=== PATIENT | male | born 1965 | race Caucasian/White ===

== ENCOUNTER 2017-01-13 20:06 | Emergency (ER) | payer BC ==
--- NOTE | 2017-01-13 21:36 | XR ---
EXAMINATION TYPE: XR hand complete LT DATE OF EXAM: 01/13/2017 9:29 PM CLINICAL HISTORY: Left hand pain after laceration injury today. TECHNIQUE: Frontal, lateral and oblique images of the left hand are obtained. COMPARISON: None. FINDINGS: Overlying gauze or bandage material is seen at level of first distal phalanx making evaluat ion at this level slightly suboptimal. There is acute comminuted minimally displaced fracture involvi ng the first distal phalanx. 2 linear densities or soft tissue foreign body identified measuring roug hly 2 mm in length. Remainder of left hand is preserved. Joint spaces are maintained. IMPRESSION: There is acute comminuted minimally displaced fracture involving distal two thirds of th e first distal phalanx, Two 2mm linear soft tissue foreign bodies are identified. (Initial encounter close type post traumatic fracture)
[2017-01-13] MEDS ORDERED: ceFAZolin 1,000 MG VIAL IM STA (21:37)
[2017-01-13] MEDS ORDERED: HYDROmorphone 1 MG/ML 1 ML SYRINGE IM STA (21:37)
--- NOTE | 2017-01-13 22:06 | ED ---
Wound/Laceration HPI - General Chief Complaint: Wound/Laceration Stated Complaint: Thumb Laceration Time Seen by Provider: 01/13/17 21:07 Source: patient, RN notes reviewed Mode of arrival: ambulatory Limitations: no limitations - History of Present Illness Initial Comments: Patient is a 51-year-old male presents emergency room for evaluation of left thumb laceration. Patient states he was cutting plexiglass with a table saw and the plexi glass exploded and he accidentally cut his left thumb. Patient states having 10 out of 10 left thumb pain. Patient states he is experiencing tingling at the tip of his thumb. Patient denies any other injuries during incident. Patient states last tetanus vaccine was this year. Patient denies taking blood thinners. - Related Data Home Medications Medication Instructions Recorded Confirmed Candesartan [Atacand] 16 mg PO DAILY 03/11/16 11/10/16 Previous Rx's Medication Instructions Recorded Cephalexin [Keflex] 500 mg PO Q6HR 7 Days 01/13/17 HYDROcodone/APAP 5-325MG [[place] 1 tab PO Q6HR PRN #20 tab 01/13/17 5-325] Allergies Allergy/AdvReac Type Severity Reaction Status Date / Time seasonal Allergy Unknown Uncoded 01/13/17 20:40 Review of Systems ROS Statement: Those systems with pertinent positive or pertinent negative responses have been documented in the HPI. ROS Other: All systems not noted in ROS Statement are negative. Past Medical History Additional Past Medical History / Comment(s): Migraines History of Any Multi-Drug Resistant Organisms: None Reported Past Surgical History: Orthopedic Surgery Additional Past Surgical History / Comment(s): Surgery on both hands. Right to fix wrist and left to fix tendons Past Anesthesia/Blood Transfusion Reactions: No Reported Reaction Past Psychological History: No Psychological Hx Reported Smoking Status: Never smoker Past Alcohol Use History: None Reported Past Drug Use History: None Reported - Past Family History Mother Family Medical History: Hypertension Additional Family Medical History / Comment(s): Chrones disease Father Family Medical History: Hypertension General Exam - General Exam Comments Initial Comments: Sitting in exam room in no acute distress. Limitations: no limitations General appearance: alert, in no apparent distress Head exam: Present: atraumatic, normocephalic, normal inspection Eye exam: Present: normal appearance ENT exam: Present: normal exam Neck exam: Present: normal inspection Respiratory exam: Present: normal lung sounds bilaterally. Absent: respiratory distress Cardiovascular Exam: Present: regular rate, normal rhythm, normal heart sounds Left Hand Wrist exam: Present: full ROM, tenderness (Pain on palpating over the distal phalanx of the thumb), laceration (Vertical 2cm laceration of the distal phalanx of the thumb on the palmar side. ), nail avulsion (left thumb) Neuro motor exam: Present: wrist extension intact Vascular: Present: radial pulse (2+), ulnar pulse (2+) Back exam: Present: normal inspection Neurological exam: Present: alert, oriented X3, CN II-XII intact, normal gait Psychiatric exam: Present: normal affect, normal mood Skin exam: Present: warm, dry, normal color. Absent: rash Course Vital Signs 01/13/17 01/13/17 01/13/17 20:26 22:22 23:51 Temperature 97.8 F 99 F Pulse Rate 70 65 70 Respiratory 18 18 16 Rate Blood Pressure 108/64 112/69 107/68 O2 Sat by Pulse 97 98 98 Oximetry 01/14/17 00:01 Temperature Pulse Rate 78 Respiratory 16 Rate Blood Pressure 106/56 O2 Sat by Pulse 98 Oximetry Procedures - Laceration Laceration #1 Consent Obtained: verbal consent Indication: laceration Site: other (left thumb) Size (cm): 2 Description: linear Anesthetic Used: lidocaine 1% Anesthesia Technique: nerve block Amount (mls): 8 Pre-repair: wound explored, irrigated extensively Type of Sutures: nylon Size of Sutures: 4-0 (4), 5-0 (7) Number of Sutures: 11 Technique: simple, interrupted Patient Tolerated Procedure: well Medical Decision Making - Medical Decision Making Patient is a 51-year-old male presents to the emergency room for evaluation of left thumb pain and laceration. Left hand x-ray shows a shattered distal phalanx of the left thumb. Patient also has thumb laceration. Patient has an open fracture. Patient given IM Ancef. Left thumb was digitally blocked. Laceration was irrigated extensively with 1 L of normal saline. Laceration repaired with sutures. Nail was fully removed from nailbed and then placed back on over the nail bed and tacked on with sutures. Patient became lightheaded and hypotensive during procedure. After procedure was finished blood pressure has gone up and patient is feeling a lot better. Will send patient home with pain medications and antibiotics. Advised patient to follow- up with hand specialist. Patient states he understands everything that was discussed with him. Return parameters discussed. Case discussed with Dr. Cardenas. - Radiology Data Radiology results: report reviewed, image reviewed Disposition Clinical Impression: Fracture of thumb, left, open Disposition: HOME SELF-CARE Condition: Good Instructions: Finger Fracture (ED), Finger Laceration (ED), Care For Your Stitches (ED) Additional Instructions: Please follow up with hand specialist for further evaluation. Take ibuprofen as needed for pain. Take Cyclone as needed for severe pain. Take antibiotics as directed. Can change dressing in 24-48 hours. Clean suture area with a damp cloth. Please return for suture removal in 12-14 days. If any new symptom arises or symptoms worsen, return to ER as soon as possible. Prescriptions: Cephalexin [Keflex] 500 mg PO Q6HR 7 Days HYDROcodone/APAP 5-325MG [[place] 5-325] 1 tab PO Q6HR PRN #20 tab PRN Reason: Pain Referrals: Anderson Marin MD [Primary Care Provider] - 1-2 days Ihsan Ferrera DO [Doctor of Osteopathic Medicine] - 1-2 days Time of Disposition: 23:44
[2017-01-13 23:53] VITALS: RESP 16; TEMP 99
[2017-01-14 00:01] VITALS: BP 106/56; PULSE 78
== END 2017-01-14 00:01 | disposition home or self-care (01) ==
LOC: EC 20:06
DX: S62.522B Displaced fracture of distal phalanx of left thumb, initial encounter for open fracture (principal); W25.XXXA Contact with sharp glass, initial encounter
CPT/HCPCS: 99282; 96372 ×2; 12001; 64450; 73130; J0690; J1170

== ENCOUNTER → 2018-12-23 | Outpatient (CLI) | payer BC ==
--- NOTE | 2018-12-23 08:15 | CT ---
EXAMINATION TYPE: CT brain wo con DATE OF EXAM: 12/23/2018 COMPARISON: None HISTORY: History of migraine headaches. Recent vision changes during migraine episodes, CT DLP: 1066.[address] of the brain was performed. The ventricles, basal cisterns and sulci overlying the cerebral convexities demonstrate mild enlargem ent. There is no evidence for intracranial hemorrhage or sulcal effacement. There is decreased attenuation about the periventricular white matter and deep white matter of both c erebral hemispheres, compatible with chronic small vessel ischemia. Differential diagnosis does inclu de demyelination. No mass effects are seen.No midline shift. Osseous calvarium is intact. If symptoms persist consider MRI. IMPRESSION: 1. Age related atrophic and chronic small vessel ischemic change without acute intracranial process s een at this time.
== END ==
LOC: RADCTMAIN 07:51
PROVIDERS: ATTEND Physician Assistant
DX: G31.1 Senile degeneration of brain, not elsewhere classified (principal); I67.82 Cerebral ischemia
CPT/HCPCS: 70450

== ENCOUNTER 2021-04-19 19:46 | Emergency (ER) | payer BC ==
[2021-04-19 20:00] VITALS: PULSE 91; RESP 18; TEMP 98
--- NOTE | 2021-04-19 20:34 | XR ---
EXAMINATION TYPE: XR knee complete LT DATE OF EXAM: 04/19/2021 COMPARISON: NONE HISTORY: Knee pain TECHNIQUE: 3 views FINDINGS: I see no fracture nor dislocation. Joint spaces are fairly normal. There is mild spurring o n the anterior patella. There is spurring at the tibial tubercle. There are no erosions. There is no subluxation. There is no sign of joint effusion. IMPRESSION: Mild spurring. No fracture seen.
--- NOTE | 2021-04-19 20:39 | ED ---
General Adult HPI - General Chief complaint: Extremity Injury, Lower Stated complaint: L knee pain Time Seen by Provider: 04/19/21 20:07 Source: patient, family, RN notes reviewed, old records reviewed Mode of arrival: ambulatory Limitations: no limitations - History of Present Illness Initial comments: 55-year-old male presenting with left knee pain. Patient was getting out of his truck, and twisted his left knee. There is no head or neck trauma. He states that his leg went inward and his knee went outward. He's had issues with this knee in the past. He's had significant pain since the time of injury. - Related Data Home Medications Medication Instructions Recorded Confirmed Candesartan [Atacand] 16 mg PO DAILY 03/11/16 11/10/16 Previous Rx's Medication Instructions Recorded Cephalexin [Keflex] 500 mg PO Q6HR 7 Days cap 01/13/17 HYDROcodone/APAP 5-325MG [[place] 1 tab PO Q6HR PRN #20 tab 01/13/17 5-325] HYDROcodone/APAP 5-325MG [[place] 1 tab PO Q6HR PRN #12 tab 04/19/21 5-325] Ibuprofen [Motrin] 600 mg PO Q8HR PRN #24 tab 04/19/21 Allergies Allergy/AdvReac Type Severity Reaction Status Date / Time seasonal Allergy Unknown Uncoded 04/19/21 20:00 Review of Systems ROS Statement: Those systems with pertinent positive or pertinent negative responses have been documented in the HPI. ROS Other: All systems not noted in ROS Statement are negative. Past Medical History Past Medical History: Hypertension Additional Past Medical History / Comment(s): Migraines History of Any Multi-Drug Resistant Organisms: None Reported Past Surgical History: Orthopedic Surgery Additional Past Surgical History / Comment(s): Surgery on both hands. Right to fix wrist and left to fix tendons Past Anesthesia/Blood Transfusion Reactions: No Reported Reaction Past Psychological History: No Psychological Hx Reported Smoking Status: Never smoker Past Alcohol Use History: Occasional Past Drug Use History: None Reported - Past Family History Mother Family Medical History: Hypertension Additional Family Medical History / Comment(s): Chrones disease Father Family Medical History: Hypertension General Exam Limitations: no limitations General appearance: alert, in no apparent distress Head exam: Present: atraumatic, normocephalic Eye exam: Present: normal appearance, PERRL ENT exam: Present: normal exam Neck exam: Present: normal inspection. Absent: tenderness, meningismus Respiratory exam: Present: normal lung sounds bilaterally. Absent: respiratory distress, wheezes Cardiovascular Exam: Present: regular rate, normal rhythm GI/Abdominal exam: Present: soft. Absent: distended, tenderness, guarding Extremities exam: Present: joint swelling (Left knee, mild effusion on exam, tenderness on the medial aspect of the joint. No erythema. Distal pulses are intact.) Course Vital Signs 04/19/21 19:55 Temperature 98.0 F Pulse Rate 91 Respiratory 18 Rate O2 Sat by Pulse 97 Oximetry Medical Decision Making - Medical Decision Making 55-year-old male with injury is concerning for ligamentous injury. X-ray negative for acute fracture dislocation. Distal pulses intact. Patient is placed in a knee immobilizer and given orthopedic follow-up. Disposition Clinical Impression: Knee sprain Disposition: HOME SELF-CARE Condition: Good Instructions (If sedation given, give patient instructions): Knee Sprain (ED) Prescriptions: Ibuprofen [Motrin] 600 mg PO Q8HR PRN #24 tab PRN Reason: Pain HYDROcodone/APAP 5-325MG [[place] 5-325] 1 tab PO Q6HR PRN #12 tab PRN Reason: Pain Is patient prescribed a controlled substance at d/c from ED?: No Referrals: Anderson Marin MD [Primary Care Provider] - 1-2 days Samson Keita DO [Doctor of Osteopathic Medicine] - 1-2 days Time of Disposition: 20:39
== END 2021-04-19 20:45 | disposition home or self-care (01) ==
LOC: EC 19:46
DX: S83.92XA Sprain of unspecified site of left knee, initial encounter (principal); X50.1XXA Overexertion from prolonged static or awkward postures, initial encounter; Y93.89 Activity, other specified; Y92.812 Truck as the place of occurrence of the external cause; I10 Essential (primary) hypertension
CPT/HCPCS: 73562; 99283; L1830

== ENCOUNTER → 2021-10-03 | Outpatient (CLI) | payer BC ==
[~2021-10-03] MED LIST: BAMLANIVIMAB (EUA) 700 MG, ETESEVIMAB (EUA) 1,400 MG in SODIUM CHLORIDE 0.9% 50 ML IVPB NR; SODIUM CHLORIDE 0.9% 50 ML IVPB NR; SODIUM CHLORIDE 0.9% 500 ML 500 ML in EMPTY BAG 1 BAG IV PRN
[2021-10-03 14:12] VITALS: RESP 16
[2021-10-03 14:53] VITALS: TEMP 97.9
[2021-10-03 15:07] VITALS: BP 128/78; PULSE 55
== END | disposition home or self-care (01) ==
LOC: PROCWHC3 13:25
PROVIDERS: ATTEND Family Medicine
DX: U07.1 COVID-19 (principal)
CPT/HCPCS: 96360; J3490; M0243

== ENCOUNTER 2021-10-09 17:20 | Emergency (ER) | payer BC ==
[2021-10-09 18:38] VITALS: TEMP 97.3
[2021-10-09] MEDS ORDERED: SODIUM CHLORIDE 0.9% 1,000 ML IV STA (20:39)
[2021-10-09] MEDS ORDERED: KETOROLAC 15 MG/ML 1 ML VIAL IVP STA (20:39)
[2021-10-09] MEDS ORDERED: diphenhydrAMINE 50 MG/ML 1 ML VIAL IVP STA (20:40)
[2021-10-09] MEDS ORDERED: ONDANSETRON 4 MG/2 ML VIAL IVP STA (20:40)
--- NOTE | 2021-10-09 20:52 | XR ---
EXAMINATION TYPE: XR chest 2V DATE OF EXAM: 10/09/2021 COMPARISON: 03/11/2016 HISTORY: Chest pain TECHNIQUE: FINDINGS: Heart and mediastinum are normal. Lungs are clear of infiltrate. There is no heart failure. There are no hilar masses. Costophrenic angles are clear. Bony thorax is intact. IMPRESSION: Normal chest. No adverse change.
[2021-10-09 21:44] LABS: Basophils % (A) 0 %; Eosinophils # (A) 0.1 k/uL (0-0.7); Eosinophils % (A) 1 %; HCT 46.3 % (39.0-53.0); HGB 15.1 gm/dL (13.0-17.5); Lymphocytes # (A) 3.2 k/uL (1.0-4.8); Lymphocytes % (A) 26 %; MCH 29.1 pg (25.0-35.0); MCHC 32.7 g/dL (31.0-37.0); Mean Platelet Volume 9.2; Monocytes % (A) 8 %; Neutrophils # (A) 7.6 k/uL (1.3-7.7); Neutrophils % (A) 63 %; Platelet Count 261 k/uL (150-450); RBC 5.21 m/uL (4.30-5.90); RDW 13.9 % (11.5-15.5); WBC 12.2 k/uL (3.8-10.6)
[2021-10-09 22:06] LABS: Potassium 4.1 mmol/L (3.5-5.1)
[2021-10-09 22:09] LABS: Albumin 3.8 g/dL (3.5-5.0); Total Bilirubin 0.5 mg/dL (0.2-1.3); Total Protein 6.6 g/dL (6.3-8.2)
--- NOTE | 2021-10-09 22:31 | ED ---
Recheck HPI - General Chief Complaint: Recheck/Abnormal Lab/Rx Stated Complaint: Low Blood Pressure Time Seen by Provider: 10/09/21 20:02 Source: patient, RN notes reviewed Mode of arrival: ambulatory Limitations: no limitations - History of Present Illness Initial Comments: Patient is a 55-year-old male with history of hypertension, presenting to the e mergency department today for concerns of low blood pressure. Patient states he felt lightheaded and dizzy today after he admits to that. States he called his doctor's office and they recommended taking his blood pressure at home. He states his readings were 90s over 60s and they recommend coming in for evaluation. Patient states he has been recovering from Covid, he was diagnosed 10 days ago. He states overall he has been feeling much improved, he is back to eating and drinking as normal. He denies any chest pain or shortness of breath, no nausea or vomiting. He denies any lightheadedness or dizziness at this time. Patient denies any fevers or chills. He has no further complaints. Patient's vital signs are stable upon arrival with blood pressure 130/81. - Related Data Home Medications Medication Instructions Recorded Confirmed Candesartan [Atacand] 16 mg PO DAILY 03/11/16 10/03/21 Previous Rx's Medication Instructions Recorded Cephalexin [Keflex] 500 mg PO Q6HR 7 Days cap 01/13/17 HYDROcodone/APAP 5-325MG [[place] 1 tab PO Q6HR PRN #20 tab 01/13/17 5-325] HYDROcodone/APAP 5-325MG [[place] 1 tab PO Q6HR PRN #12 tab 04/19/21 5-325] Ibuprofen [Motrin] 600 mg PO Q8HR PRN #24 tab 04/19/21 Allergies Allergy/AdvReac Type Severity Reaction Status Date / Time seasonal Allergy Unknown Uncoded 10/09/21 18:36 Review of Systems ROS Statement: Those systems with pertinent positive or pertinent negative responses have been documented in the HPI. ROS Other: All systems not noted in ROS Statement are negative. Past Medical History Past Medical History: Hypertension Additional Past Medical History / Comment(s): Migraines History of Any Multi-Drug Resistant Organisms: None Reported Past Surgical History: Orthopedic Surgery Additional Past Surgical History / Comment(s): Surgery on both hands. Right to fix wrist and left to fix tendons Past Anesthesia/Blood Transfusion Reactions: No Reported Reaction Past Psychological History: No Psychological Hx Reported Smoking Status: Never smoker Past Alcohol Use History: Occasional Past Drug Use History: None Reported - Past Family History Mother Family Medical History: Hypertension Additional Family Medical History / Comment(s): Chrones disease Father Family Medical History: Hypertension General Exam - General Exam Comments Initial Comments: GENERAL: Patient is well-developed and well-nourished. Patient is nontoxic and in no acute distress. HEAD: Atraumatic, normocephalic. EYES: Pupils equal round and reactive to light, extraocular movements intact, sclera anicteric, conjunctiva are normal. Eyelids were unremarkable. ENT: Moist mucous membranes. NECK: Normal range of motion, supple without lymphadenopathy or JVD. LUNGS: Unlabored respirations. Breath sounds clear to auscultation bilaterally and equal. No wheezes rales or rhonchi. HEART: Regular rate and rhythm without murmurs, rubs or gallops. ABDOMEN: Soft, nontender, normoactive bowel sounds. No guarding, no rebound. No masses appreciated. MUSCULOSKELETAL: Normal extremities with adequate strength and normal range of motion, no pitting or edema. No clubbing or cyanosis. NEUROLOGICAL: Patient is alert and oriented x 3. SKIN: Warm, Dry, normal turgor, no rashes or lesions noted. Limitations: no limitations Course Vital Signs 10/09/21 10/09/21 18:36 23:00 Temperature 97.3 F L Pulse Rate 82 75 Respiratory 20 17 Rate Blood Pressure 138/81 132/79 O2 Sat by Pulse 99 99 Oximetry Medical Decision Making - Medical Decision Making Patient is a 55-year-old male here for a recheck and concerns for low blood pressure readings at home. He was lightheaded today. Recovering from covid, dx 10 days ago. His vital signs are stable upon arrival with blood pressure 130s over 80s. His exam is unremarkable. Basic labs are normal, chest x-ray is also unremarkable. She was having a headache today, to give her some fluids and Toradol. He reports improvement in his symptoms. Blood pressure rechecked and continues to be normal. I recommended following up with his primary care. He is agreeable to this plan of care he is stable for discharge. - Lab Data Result diagrams: 10/09/21 21:33 10/09/21 21:33 Lab Results 10/09/21 10/09/21 Range/Units 21:33 21:33 WBC 12.2 H (3.8-10.6) k/uL RBC 5.21 (4.30-5.90) m/uL Hgb 15.1 (13.0-17.5) gm/dL Hct 46.3 (39.0-53.0) % MCV 89.0 (80.0-100.0) fL MCH 29.1 (25.0-35.0) pg MCHC 32.7 (31.0-37.0) g/dL RDW 13.9 (11.5-15.5) % Plt Count 261 (150-450) k/uL MPV 9.2 Neutrophils % 63 % Lymphocytes % 26 % Monocytes % 8 % Eosinophils % 1 % Basophils % 0 % Neutrophils # 7.6 (1.3-7.7) k/uL Lymphocytes # 3.2 (1.0-4.8) k/uL Monocytes # 1.0 (0-1.0) k/uL Eosinophils # 0.1 (0-0.7) k/uL Basophils # 0.0 (0-0.2) k/uL Sodium 135 L (137-145) mmol/L Potassium 4.1 (3.5-5.1) mmol/L Chloride 103 (98-107) mmol/L Carbon Dioxide 24 (22-30) mmol/L Anion Gap 8 mmol/L BUN 25 H (9-20) mg/dL Creatinine 1.10 (0.66-1.25) mg/dL Est GFR (CKD-EPI)AfAm 87 (>60 ml/min/1.73 sqM) Est GFR (CKD-EPI)NonAf 75 (>60 ml/min/1.73 sqM) Glucose 84 (74-99) mg/dL Calcium 9.0 (8.4-10.2) mg/dL Total Bilirubin 0.5 (0.2-1.3) mg/dL AST 24 (17-59) U/L ALT 25 (4-49) U/L Alkaline Phosphatase 52 (38-126) U/L Total Protein 6.6 (6.3-8.2) g/dL Albumin 3.8 (3.5-5.0) g/dL Disposition Clinical Impression: Hypotension, Lightheaded, Headache Disposition: HOME SELF-CARE Condition: Stable Instructions (If sedation given, give patient instructions): Acute Headache (ED) Additional Instructions: Please return to the Emergency Department if symptoms worsen or any other co ncerns. Increase your fluid intake. Please follow-up with your primary care physician. Is patient prescribed a controlled substance at d/c from ED?: No Referrals: Anderson Marin MD [Primary Care Provider] - 1-2 days Time of Disposition: 22:31
[2021-10-09 23:02] VITALS: BP 132/79; PULSE 75; RESP 17
== END 2021-10-09 23:00 | disposition home or self-care (01) ==
LOC: EC 17:20
DX: I95.9 Hypotension, unspecified (principal); I10 Essential (primary) hypertension; G43.909 Migraine, unspecified, not intractable, without status migrainosus; Z79.899 Other long term (current) drug therapy; Z91.048 Other nonmedicinal substance allergy status
CPT/HCPCS: 36415; 80053; 85025; 71046; 99285; 96361; 96374; 96375; J1200; J2405; J1885

== ENCOUNTER → 2023-03-22 | Outpatient (CLI) | payer BC ==
--- NOTE | 2023-03-24 23:04 | CT ---
EXAMINATION TYPE: CT chest wo con DATE OF EXAM: 03/22/2023 COMPARISON: 03/11/2016 HISTORY: 57-year-old male R91.8 pneumonia x 5 weeks TECHNIQUE: Contiguous axial scanning of the chest without IV contrast. Coronal and sagittal reconstru ctions performed. CT DLP: 1011.0 mGycm Automated exposure control for dose reduction was used. FINDINGS: Heart normal size without pericardial effusion. Ectatic ascending aorta 3.8 cm. Conventional arch vessel branching anatomy. No thoracic lymphadenopathy by CT size criteria. Lungs show some strandy atelectasis at the lung bases. No consolidation or pleural effusion. A centrally located hyperdensity within the upper right kidney is larger at 2.7 cm versus 2.1 cm back in 2016. A slowly enlarging cyst is suggested. Bones: Right lateral endplate spondylosis lower thoracic spine. IMPRESSION: NO ACUTE PULMONARY PROCESS. SOME STRANDY ATELECTASIS AT THE LUNG BASES.
== END | disposition home or self-care (01) ==
LOC: RADCTMAIN 15:29
PROVIDERS: ATTEND Family Medicine
DX: J98.11 Atelectasis (principal); R91.8 Other nonspecific abnormal finding of lung field
CPT/HCPCS: 71250

== ENCOUNTER 2024-02-23 15:57 | Emergency (ER) | payer BC ==
[2024-02-23 16:35] VITALS: TEMP 98.6
--- NOTE | 2024-02-23 17:13 | ED ---
General Adult HPI - General Chief complaint: Headache Stated complaint: Migraine Time Seen by Provider: 02/23/24 16:06 Source: patient Mode of arrival: ambulatory Limitations: no limitations - History of Present Illness Initial comments: 58-year-old male with past medical history for migraines presenting to the ED with a chief complaint of migraine. Patient states with history of migraines they become intermittently worse than usual which causes him to present to the ED for treatment. States today he is having a right-sided headache which is sharp in nature with associated photophobia, phonophobia, and nausea no vomiting. States that while pain is worse than his typical migraines, still in line with his history of pain levels for migraines and not excessively worse than usual. Reports that he took rimegepant and atogepant for this however r eported no relief. Per at bedside, reports that the patient is acting his normal self and she stated, "he is not having any stroke symptoms". Patient does note he was diagnosed with influenza 4 days ago however symptoms seem to completely resolved yesterday. Denies chest pain or shortness of breath. Denies fever or chills. No other complaints at this time. - Related Data Home Medications Medication Instructions Recorded Confirmed Candesartan [Atacand] 16 mg PO DAILY 03/11/16 10/03/21 Previous Rx's Medication Instructions Recorded Cephalexin [Keflex] 500 mg PO Q6HR 7 Days cap 01/13/17 HYDROcodone/APAP 5-325MG [[place] 1 tab PO Q6HR PRN #20 tab 01/13/17 5-325] HYDROcodone/APAP 5-325MG [[place] 1 tab PO Q6HR PRN #12 tab 04/19/21 5-325] Ibuprofen [Motrin] 600 mg PO Q8HR PRN #24 tab 04/19/21 Ondansetron Odt [Zofran Odt] 4 mg PO Q8HR PRN #10 tab 02/23/24 Allergies Allergy/AdvReac Type Severity Reaction Status Date / Time seasonal Allergy Unknown Uncoded 02/23/24 16:01 Review of Systems ROS Statement: Those systems with pertinent positive or pertinent negative responses have been documented in the HPI. ROS Other: All systems not noted in ROS Statement are negative. Past Medical History Past Medical History: Hypertension Additional Past Medical History / Comment(s): Migraines History of Any Multi-Drug Resistant Organisms: None Reported Past Surgical History: Orthopedic Surgery Additional Past Surgical History / Comment(s): Surgery on both hands. Right to fix wrist and left to fix tendons Past Anesthesia/Blood Transfusion Reactions: No Reported Reaction Past Psychological History: No Psychological Hx Reported Smoking Status: Never smoker Past Alcohol Use History: Occasional Past Drug Use History: None Reported - Past Family History Mother Family Medical History: Hypertension Additional Family Medical History / Comment(s): Chrones disease Father Family Medical History: Hypertension General Exam Limitations: no limitations General appearance: alert, in no apparent distress Head exam: Present: atraumatic, normocephalic Eye exam: Present: PERRL, EOMI ENT exam: Present: mucous membranes moist Neck exam: Present: normal inspection Respiratory exam: Present: normal lung sounds bilaterally Cardiovascular Exam: Present: regular rate, normal rhythm GI/Abdominal exam: Present: soft Extremities exam: Present: other (Strength and sensation bilateral upper and lower extremities equal and intact. Radial pulses, DP/PT pulses palpable.) Neurological exam: Present: alert, oriented X3, CN II-XII intact Skin exam: Present: warm, dry Course Vital Signs 02/23/24 16:00 Temperature 98.6 F Pulse Rate 72 Respiratory 20 Rate Blood Pressure 125/79 O2 Sat by Pulse 99 Oximetry Medical Decision Making - Medical Decision Making Was pt. sent in by a medical professional or institution ([facility], [employer], urgent care, hospital, or retirement...) When possible be specific @ -No Did you speak to anyone other than the patient for history (EMS, parent, family, police, friend...)? What history was obtained from this source @ -Also spoke to the patient's for parts of history. For further details please see HPI. Did you review nursing and triage notes (agree or disagree)? Why? @ -I reviewed and agree with nursing and triage notes Were old charts reviewed (outside hosp., previous admission, EMS record, old EKG, old radiological studies, urgent care reports/EKG's, retirement records)? Report findings @ -No old charts were reviewed Differential Diagnosis (chest pain, altered mental status, abdominal pain women, abdominal pain men, vaginal bleeding, weakness, fever, dyspnea, syncope, headache, dizziness, GI bleed, back pain, seizure, CVA, palpatations, mental health, musculoskeletal)? @ -Differential Headache: Migraine, tension, cluster, carbon monoxide, central venous thrombosis, pension karma temporal arteritis, acute closure glaucoma, intercranial hemorrhage, mastoiditis, sinusitis, head injury, this is not meant to be an all-inclusive list. EKG interpreted by me (3pts min.). @ -None X-rays interpreted by me (1pt min.). @ -None done CT interpreted by me (1pt min.). @ -None done U/S interpreted by me (1pt. min.). @ -None done What testing was considered but not performed or refused? (CT, X-rays, U/S, labs)? Why? @ -None What meds were considered but not given or refused? Why? @ -None Did you discuss the management of the patient with other professionals (professionals i.e. , PA, [employer], lab, RT, psych nurse, social problems specialist, criminal lawyer, teacher, space operations officer, case consultant)? Give summary @ -No Was smoking cessation discussed for >3mins.? @ -No Was critical care preformed (if so, how long)? @ -No Were there social determinants of health that impacted care today? How? (Homelessness, low income, unemployed, alcoholism, drug addiction, transportation, low edu. Level, literacy, decrease access to med. care, mcc, rehab)? @ -No Was there de-escalation of care discussed even if they declined (Discuss DNR or withdrawal of care, Hospice)? DNR status @ -No What co-morbidities impacted this encounter? (DM, HTN, Smoking, COPD, CAD, Cancer, CVA, ARF, Chemo, Hep., AIDS, mental health diagnosis, sleep apnea, morbid obesity)? @ -None Was patient admitted / discharged? Hospital course, mention meds given and route, prescriptions, significant lab abnormalities, going to OR and other perti nent info. @ -Discharge 58-year-old male with a history of migraines presented to the ED with a chief complaint of migraine. Reports current headache today is consistent with his history of migraines however when it does get this bad presents to the ED for medications. Not worse than prior migraines. On exam cranial nerves II through XII intact. Patient's at bedside reports that she is his normal self. Initially, reported migraines was 8-9 in severity however after medications here in the ED states that it is 3 in severity. Discharged home in stable condition with instructions to follow-up with his primary care provider. Provided Zofran. Discussed strict return precautions with patient and verbalized agreement. Undiagnosed new problem with uncertain prognosis? @ -No Drug Therapy requiring intensive monitoring for toxicity (Heparin, Nitro, Ins ulin, Cardizem)? @ -No Were any procedures done? @ -No Diagnosis/symptom? @ -Headache Acute, or Chronic, or Acute on Chronic? @ -Acute on chronic Uncomplicated (without systemic symptoms) or Complicated (systemic symptoms)? @ -Uncomplicated Side effects of treatment? @ -No Exacerbation, Progression, or Severe Exacerbation? @ -No Poses a threat to life or bodily function? How? (Chest pain, [place], DC, pneumonia, PE, COPD, DKA, ARF, appy, cholecystitis, CVA, Diverticulitis, Homicidal, Suicidal, threat to staff... and all critical care pts) @ -No - Lab Data Result diagrams: 02/23/24 17:20 02/23/24 17:20 Lab Results 02/23/24 02/23/24 02/23/24 Range/Units 17:15 17:20 17:20 WBC 7.0 (3.8-10.6) k/uL RBC 5.24 (4.30-5.90) m/uL Hgb 15.0 (13.0-17.5) gm/dL Hct 46.8 (39.0-53.0) % MCV 89.3 (80.0-100.0) fL MCH 28.7 (25.0-35.0) pg MCHC 32.1 (31.0-37.0) g/dL RDW 13.8 (11.5-15.5) % Plt Count 190 (150-450) k/uL MPV 9.4 Neutrophils % 64 % Lymphocytes % 24 % Monocytes % 6 % Eosinophils % 5 % Basophils % 1 % Neutrophils # 4.5 (1.3-7.7) k/uL Lymphocytes # 1.7 (1.0-4.8) k/uL Monocytes # 0.4 (0-1.0) k/uL Eosinophils # 0.3 (0-0.7) k/uL Basophils # 0.1 (0-0.2) k/uL Sodium 140 (137-145) mmol/L Potassium 3.8 (3.5-5.1) mmol/L Chloride 106 (98-107) mmol/L Carbon Dioxide 27 (22-30) mmol/L Anion Gap 7 mmol/L BUN 17 (9-20) mg/dL Creatinine 0.79 (0.66-1.25) mg/dL Est GFR (CKD-EPI)AfAm >90 (>60 ml/min/1.73 sqM) Est GFR (CKD-EPI)NonAf >90 (>60 ml/min/1.73 sqM) Glucose 87 (74-99) mg/dL Calcium 9.2 (8.4-10.2) mg/dL Total Bilirubin 0.5 (0.2-1.3) mg/dL AST 23 (17-59) U/L ALT 20 (4-49) U/L Alkaline Phosphatase 53 (38-126) U/L Total Protein 7.0 (6.3-8.2) g/dL Albumin 4.2 (3.5-5.0) g/dL Urine Color Light Yellow Urine Appearance Clear (Clear) Urine pH 7.5 (5.0-8.0) Ur Specific [place] 1.022 (1.001-1.035) Urine Protein Negative (Negative) Urine Glucose (UA) Negative (Negative) Urine Ketones Negative (Negative) Urine Blood Negative (Negative) Urine Nitrite Negative (Negative) Urine Bilirubin Negative (Negative) Urine Urobilinogen <2.0 (<2.0) mg/dL Ur Leukocyte Esterase Negative (Negative) Disposition Clinical Impression: Headache Disposition: HOME SELF-CARE Condition: Good Additional Instructions: Please return to the Emergency Department if symptoms worsen or any other concerns. Please follow-up with your primary care provider. Prescriptions: Ondansetron Odt [Zofran Odt] 4 mg PO Q8HR PRN #10 tab PRN Reason: Nausea Is patient prescribed a controlled substance at d/c from ED?: No Referrals: Anderson Marin MD [Primary Care Provider] - 1-2 days Time of Disposition: 19:17
[2024-02-23] MEDS: MAGNESIUM SULFATE-D5W PMX 1 GM in DEXTROSE/WATER 1 100ML.BAG IVPB SCH (17:27)
[2024-02-23] MEDS: KETOROLAC 15 MG/ML 1 ML VIAL IVP STA (17:28)
[2024-02-23] MEDS: METOCLOPRAMIDE 5 MG/ML 2 ML VIAL IVP STA (17:28)
[2024-02-23] MEDS: DEXAMETHASONE SOD PHOSPHATE 10 MG/ML 1 ML VIAL IVP STA (17:28)
[2024-02-23] MEDS: ACETAMINOPHEN TAB 500 MG TAB PO STA (17:29)
[2024-02-23 17:31] LABS: Basophils # (A) 0.1 k/uL (0-0.2); Basophils % (A) 1 %; Eosinophils # (A) 0.3 k/uL (0-0.7); Eosinophils % (A) 5 %; HCT 46.8 % (39.0-53.0); Lymphocytes # (A) 1.7 k/uL (1.0-4.8); Lymphocytes % (A) 24 %; MCH 28.7 pg (25.0-35.0); MCHC 32.1 g/dL (31.0-37.0); MCV 89.3 fL (80.0-100.0); Mean Platelet Volume 9.4; Monocytes # (A) 0.4 k/uL (0-1.0); Monocytes % (A) 6 %; Neutrophils # (A) 4.5 k/uL (1.3-7.7); Neutrophils % (A) 64 %; Platelet Count 190 k/uL (150-450); RBC 5.24 m/uL (4.30-5.90); RDW 13.8 % (11.5-15.5)
[2024-02-23 17:32] LABS: Appearance,Urine Clear (Clear); Bilirubin,Urine Negative (Negative); Blood,Urine Negative (Negative); Color,Urine Light Yellow; Glucose,Urine (UA) Negative (Negative); Ketones,Urine Negative (Negative); Leukocyte Esterase,Urine Negative (Negative); Nitrite,Urine Negative (Negative); PH, Urine 7.5 (5.0-8.0); Protein,Urine Negative (Negative); Specific Gravity,Urine 1.022 (1.001-1.035); Urobilinogen,Urine <2.0 mg/dL (<2.0)
[2024-02-23 17:47] LABS: ALT 20 U/L (4-49); AST 23 U/L (17-59); African American GFR (CKD) >90 (>60 ml/min/1.73 sqM); Albumin 4.2 g/dL (3.5-5.0); Alkaline Phosphatase 53 U/L (38-126); Anion Gap 7 mmol/L; Blood Urea Nitrogen 17 mg/dL (9-20); Calcium 9.2 mg/dL (8.4-10.2); Carbon Dioxide 27 mmol/L (22-30); Chloride 106 mmol/L (98-107); Glucose 87 mg/dL (74-99); Non-African American GFR(CKD) >90 (>60 ml/min/1.73 sqM); Potassium 3.8 mmol/L (3.5-5.1); Sodium 140 mmol/L (137-145); Total Bilirubin 0.5 mg/dL (0.2-1.3)
[2024-02-23] MEDS: SODIUM CHLORIDE 0.9% 1,000 ML IV STA (18:25)
[2024-02-23] MEDS: ONDANSETRON 4 MG ODT STARTER PACK 2 TAB BTL PO STA (19:27)
[2024-02-23 19:59] VITALS: BP 133/89; PULSE 67; RESP 16
== END 2024-02-23 19:34 | disposition home or self-care (01) ==
LOC: EC 15:57
DX: R51.9 Headache, unspecified (principal); Z88.8 Allergy status to other drugs, medicaments and biological substances
CPT/HCPCS: 99283; 96365; 96366; 96375 ×3; 36415; 80053; 85025; 81003; J1100; J2765; J3475; J1885; S0119; 96361

== ENCOUNTER → 2025-03-25 | Outpatient (CLI) | payer BC ==
--- NOTE | 2025-03-25 15:07 | CT ---
EXAMINATION TYPE: CT abdomen pelvis w con DATE OF EXAM: 03/25/2025 COMPARISON: None CLINICAL INDICATION: Male, 59 years old with history of R63.4 ABNORMAL WEIGHT LOSS; PHH, abnormal fabrice ght loss TECHNIQUE: Performed with Oral Contrast and with IV Contrast, patient injected with 100 ml mL of Isovue 300. CT DLP: [address] CTDI: mGy Automated exposure control for dose reduction was used. FINDINGS: The lung bases are clear. The gallbladder is normal without distention, wall thickening, pericholecystic fluid or gallstones. T here is no biliary ductal dilatation. There is no focal mass or organomegaly involving the liver, pancreas, spleen or adrenal glands. There is no solid renal mass or hydronephrosis and there is homogeneous contrast enhancement of the r enal parenchyma. There are mild parapelvic cysts of the right kidney. The caliber the abdominal aorta is normal is no retroperitoneal adenopathy or hemorrhage. The bowel loops are normal in caliber and there is no evidence of dilatation or obstruction. No infla mmatory changes are identified in the bowel wall or mesentery. There is no free intraperitoneal air or fluid. No pelvic mass, free fluid, abscess or adenopathy. There is moderate prostatic hypertrophy. The osseous structures and soft tissues are intact. IMPRESSION: Moderate prostatic hypertrophy with no other significant abnormality seen. [facility], , 03/25/2025 3:04 PM
== END | disposition home or self-care (01) ==
LOC: RADCTMAIN 12:50
PROVIDERS: ATTEND Family Medicine
DX: N40.0 Benign prostatic hyperplasia without lower urinary tract symptoms (principal); R63.4 Abnormal weight loss
CPT/HCPCS: 74177; Q9967